=== PATIENT | male | born 1995 | race Hispanic/Latino ===

== ENCOUNTER → 2020-11-03 | Outpatient (CLI) | payer OTHER ==
--- NOTE | 2020-11-07 14:00 | ECHO ---
DATE OF PROCEDURE: 11/03/2020 Age: 25 Gender: Male Height: 180 cm Weight: 113 kg REFERRING PHYSICIAN: Mike Esquivel PA-C INDICATION: Cardiomegaly. MEASUREMENTS: 2D Measurements: Left ventricle diastole 5.2 cm Intraventricular septum 1.03 cm Posterior wall 0.99 cm Left atrium 3.9 cm Left atrial volume index 17 cm Aortic root 2.9 cm Inferior vena cava 1.1 cm (normal respiratory variation) Doppler Measurements: No aortic stenosis No aortic regurgitation Aortic valve velocity 131 cm/s LVOT velocity 101 cm/s No mitral regurgitation No mitral stenosis Mitral E velocity 69.0 cm/s Mitral A velocity 59.1 cm/s Mitral deceleration time 143 msec No tricuspid regurgitation No pulmonic regurgitation Pulmonary artery acceleration time 100 msec suggestive of mild elevation of pulmonary artery systolic pressure. MITRAL ANNULAR TISSUE DOPPLER E prime septal 8.7 cm/s, E prime lateral 15.0 cm/s DESCRIPTION: Rhythm was sinus rhythm with appearance of an RBBB type morphology. Image quality was good. No pericardial effusion. This was a 2D, M-mode, color flow Doppler, and pulsed wave Doppler examination including mitral annular tissue Doppler. CONCLUSIONS: 1. Normal left ventricle internal dimensions and wall thickness. Normal regional LV wall motion and wall thickening. Normal LV systolic function. LVEF 60% by visual estimate. Normal LV diastolic function. 2. Normal right ventricle size and systolic function. Suggestive of mild elevation of pulmonary artery systolic pressure. 3. Normal size left atria. 4. No pericardial effusion. 5. Otherwise normal appearing echocardiogram Doppler findings. MTDD
== END ==
LOC: M CARPUL 07:36
PROVIDERS: ATTEND Physician Assistant
DX: I51.7 Cardiomegaly (principal)